=== PATIENT | female | born 1945 | race Two or more races ===

== ENCOUNTER → 2016-08-18 | Outpatient (CLI) | payer MEDICARE, OTHER ==
[~2016-08-18] MED LIST: ACET500T68 PO; ALEN70TA5 PO; CALC-67 PO; CHOL20003 PO; CLOB15CR TP; CRAN1TAB6 PO; ESOM40CA PO; GLUC1CAP48 PO; HYOS0.1261 SL; IBUP200C PO; LOSA100T6 PO; LOVA40TA2 PO; MAGN500C PO; MELO-156 PO; MULT-246 PO; NITR100C PO; NYST100054 PO; OMEG1CAP6 PO; PHEN-373 PO; POLY119P4 PO; PROP10TA PO
--- NOTE | 2016-08-18 10:26 | RAD ---
DATE: 08/18/16 2 EXAM: DIGITAL SCREEN BILAT W/CAD HISTORY: Routine screening COMPARISON: 07/12/15 This study was interpreted with the benefit of Computerized Aided Detection (CAD). TECHNIQUE: CC and MLO views of both breasts was obtained. FINDINGS: Breast Density: HETERO The breast parenchyma is heterogeneously dense, which could reduce sensitivity of mammography. Breast parenchyma level C.. Stable scattered benign calcifications are seen in both breasts. IMPRESSION: Benign findings BI-RADS CATEGORY: 2 BENIGN FINDING(S) RECOMMENDED FOLLOW-UP: 12M 12 MONTH FOLLOW-UP PQRS compliance statement: Patient information was entered into a reminder system with a target due date for the next mammogram. Mammography is a sensitive method for finding small breast cancers, but it does not detect them all and is not a substitute for careful clinical examination. A negative mammogram does not negate a clinically suspicious finding and should not result in delay in biopsying a clinically suspicious abnormality. "Our facility is accredited by the [employer] Mammography Program."
== END | disposition home or self-care (01) ==
LOC: MAMMO 08:28
PROVIDERS: ATTEND Family Medicine
DX: Z12.31 Encounter for screening mammogram for malignant neoplasm of breast (principal)
CPT/HCPCS: G0202; 77067

== ENCOUNTER → 2017-08-20 | Outpatient (CLI) | payer MEDICARE, OTHER | END | disposition home or self-care (01) | LOC: MAMMO 09:53 | DX: Z12.31 Encounter for screening mammogram for malignant neoplasm of breast (principal) | CPT/HCPCS: 77063; 77067 ==

== ENCOUNTER → 2018-06-16 | Outpatient (CLI) | payer MEDICARE, OTHER ==
[~2018-06-16] MED LIST changes: -ALEN70TA5 PO; +ALEN70TA6 PO; +CALC-31 PO; -CALC-67 PO; -CHOL20003 PO; +CHOL20009 PO; +LOSA100T14 PO; -LOSA100T6 PO; -MAGN500C PO; +MAGN500C10 PO; -MELO-156 PO; +MELO7.5T29 PO; -PHEN-373 PO; +PHEN-444 PO
--- NOTE | 2018-06-16 15:17 | KCIC ---
Thyroid sonography Clinical indications: Right thyroid nodule increasing in size FINDINGS: The longitudinal AP and transverse dimensions of the right lobe are 4.3 cm and 1.9 cm and 1.4 cm respectively. The right lobe is heterogeneous. Small hypoechoic nodules are seen measuring 3 mm or less in size. There is a small hyperechoic nodule measuring 4.4 mm in size within the lower pole. The longitudinal and AP and transverse dimensions of the left lobe are 3.5 cm and 1.0 cm and 1.0 cm respectively. Small hypoechoic nodules are seen measuring 3 mm or less in size. The isthmus measures 3.5 mm in thickness and is homogeneous. IMPRESSION: Small benign bilateral thyroid nodules. Electronically signed by: Livan Cheng MD (06/16/2018 3:14 PM) [place] [id number]
== END | disposition home or self-care (01) ==
LOC: KCIC US 10:52
PROVIDERS: ATTEND Family Medicine
DX: E04.2 Nontoxic multinodular goiter (principal)
CPT/HCPCS: 76536

== ENCOUNTER → 2018-06-29 | Outpatient (CLI) | payer MEDICARE, OTHER ==
--- NOTE | 2018-06-29 11:54 | CARD ---
MR#: [id number] Date of Study: 06/29/2018 Ordering Physician: LALO STEVEN, Referring Physician: Refugio NOBLE: Tanisha Contreras RDCS APPROVED REPORT INDICATION Chest Pain Reason : Dizziness PROCEDURE The patient underwent an Exercise Stress Test using the Artem Protocol. Blood pressure, heart rate, a nd EKG were monitored. An Echocardiogram was performed by preventative maintenance technician in four stages in quad fashion. At peak stress four se lected images were obtained and placed side by side with resting images for comparison. STRESS ECHO FINDINGS The resting Echocardiogram showed normal left ventricular systolic contractility with an estimated Ej ection Fraction of about 60 %. The Resting Echocardiogram showed normal augmentation of myocardial wall segments using a 16 segment model. The Stress Echocardiogram showed normal augmentation of myocardial wall segments using a 16 segment m gaby. The Stress Echocardiogram left ventricular systolic contractility has an estimated Ejection Fraction of about 65%. Test Type: Exercise Stress Nurse/Tech: Wendy Geller R.N. Test Indications: cp Cardiac History and Allergies: see ehr Medications: see ehr Medical History: see ehr Resting ECG: SR Resting Heart Rate: 66 bpm Resting Blood Pressure: 163/60mmHg Pretest Chest Pain: No chest pain Nurse/Tech Notes S1S2, lungs CTA Stress Symptoms fatigue POST EXERCISE Reason for Termination: Reached target heart rate Target HR: Yes Max HR: 136 bpm 93% of Maximum Predicted HR: 147 bpm Exercise duration: 6:31 min:sec, Stage Exercise capacity: 7METs Max Blood Pressure: 195/90mmHg Heart Rate response to exercise: wnl Chest Pain: No. Arrhythmia: No. ST Change: Yes. No significant EKg changes. INTERPRETATION Stress EKG Conclusion: No significant EKG changes to suggest ischemia. STRESS ECG Stress EKG shows no significant changes. Preliminary Notification Critical Value: No <Conclusion> Normal exercise capacity with 7 metastases achieved with a total exercise time of 6 and half minutes on a Artem protocol Normal baseline LV function. EF 55%. Normal wall motion. Normal augmentation with stress with ejection fraction greater than 60%. Low risk study Signed by : Lamberto Wade, Electronically Approved : 06/29/2018 11:52:46
== END | disposition home or self-care (01) ==
LOC: ECHO 09:53
PROVIDERS: ATTEND Family Medicine
DX: R07.89 Other chest pain (principal); R42 Dizziness and giddiness
CPT/HCPCS: 93017; 93350

== ENCOUNTER → 2018-12-21 | Outpatient (CLI) | payer MEDICARE ==
--- NOTE | 2018-12-23 19:02 | RAD ---
DATE: 12/21/2018 EXAM: MAMMO ZEENAT SCREENING BILATERAL HISTORY: Routine screening COMPARISON: 07/12/2015, 08/18/2016, 08/20/2017 mammographic exams This study was interpreted with the benefit of Computerized Aided Detection (CAD). Breast Density: HETERO The breast parenchyma is heterogenously dense, which could reduce sensitivity of mammography. Breast parenchyma level C. FINDINGS: Benign calcifications are present. No mass or distortion. IMPRESSION: Stable BI-RADS CATEGORY: 1 NEGATIVE RECOMMENDED FOLLOW-UP: 12M 12 MONTH FOLLOW-UP PQRS compliance statement: Patient information was entered into a reminder system with a target due date in one year for the next mammogram. Mammography is a sensitive method for finding small breast cancers, but it does not detect them all and is not a substitute for careful clinical examination. A negative mammogram does not negate a clinically suspicious finding and should not result in delay in biopsying a clinically suspicious abnormality. "Our facility is accredited by the [employer] Mammography Program."
== END | disposition home or self-care (01) ==
LOC: MAMMO 10:21
PROVIDERS: ATTEND Family Medicine
DX: Z12.31 Encounter for screening mammogram for malignant neoplasm of breast (principal); N64.89 Other specified disorders of breast
CPT/HCPCS: 77063; 77067

== ENCOUNTER → 2019-06-08 | Day surgery (SDC) | payer MEDICARE, MEDICAID ==
[~2019-06-08] MED LIST changes: +HYDROmorphone 2 MG/ML VIAL IV PRN; +IV RINGERS,LACTATED 1000ML 1,000 ML IV SCH; +LIDOCAINE 1% PF 2 ML VIAL. ID PRN; +MORPHINE SULFATE 2 MG/ML VIAL. IV PRN; +ONDANSETRON PF 4 MG/2 ML VIAL. IV PRN; +PROCHLORPERAZINE 10 MG/2 ML VIAL. IV PRN; +PROPOFOL 20 ML IV ONE; +fentaNYL PF VIAL 100 MCG/2 ML VIAL IV PRN
[2019-06-08 10:29] VITALS: BP 147/65
--- NOTE | 2019-06-09 11:07 | PATHOLOGY ---
[facility] Accession Number: [id number] . 01 Material submitted: . PART A: small bowel - SMALL BOWEL BX PART B: stomach - ANTRUM GASTRIC BODY BX PART C: stomach - POLYP IN BODY OF STOMACH BX PART D: esophagus - DISTAL ESOPHAGUS BX AT 33. Modifiers: distal PART E: esophagus - MID ESOPHAGUS BX. Modifiers: mid . 01 Clinical history: . Dysphagia; Rothman's . 02 Diagnosis: A. Small bowel biopsies: - No significant pathologic abnormalities. . B. Gastric biopsy, antrum and gastric body: - Chronic gastritis, mild, focally active. . C. Gastric biopsies, body of stomach polyp: - Hyperplastic polyp, showing focal surface erosion, edema, and mild acute and chronic inflammation. . D. Esophageal biopsies, distal esophagus at 33 cm: - Segments of hyperplastic squamous esophageal mucosa with focal contiguous gastric mucosa showing moderate to marked active chronic inflammation, consistent with reflux changes. . E. Esophageal biopsies, middle esophagus: - Segments of mildly hyperplastic squamous esophageal mucosa. (JPM:[facility] 06/09/2019) [facility] 06/09/2019 0923 Local . 02 Comment: Sections of the small bowel biopsy reveal segments of duodenal mucosa. Where best oriented, the mucosal villi show no sprue-like changes or significant inflammatory changes. . Sections of the gastric biopsy reveal gastric antral mucosa showing congestion and focally active mild chronic inflammation. A properly controlled immunoperoxidase for Helicobacter is negative for Helicobacter organisms. . Sections of the gastric body polyp biopsy reveal segments of gastric hyperplastic polyp showing congestion, focal edema, and focal superficial mucosal erosion and mild acute and chronic inflammation. There are no adenomatous changes or evidence of malignancy. . Sections of the distal esophageal biopsy reveal segments of tangentially oriented hyperplastic squamous esophageal mucosa, one of which has contiguous gastric mucosa showing moderate to marked active chronic inflammation. The findings are consistent with reflux esophagitis. There is no evidence of Rothman's change, dysplasia, or malignancy. . Sections of the middle esophageal biopsy reveal segments of tangentially oriented, mildly hyperplastic squamous esophageal mucosa. There is no evidence of Rothman's change, dysplasia, or malignancy. (JPM:[facility] 06/09/2019) . Special stain performed: Immunoperoxidase for Helicobacter on B1. . 02 Electronically signed: . Chepe Lagos MD, Pathologist NPI- [id number] . 01 Gross description: . A. The specimen is received in formalin, labeled "Jessica Sanzarribas, small bowel biopsy". Received are three segments of pale flores soft tissue ranging in size from 0.3 to 0.4 cm in maximum dimensions. The specimen is submitted entirely in cassette A1. . B. The specimen is received in formalin, labeled "Jessica Sanzarribas, antrum and gastric body biopsy". Received is a segment of pale flores soft tissue measuring 0.6 cm in maximum dimensions. The specimen is submitted entirely in cassette B1. Upon careful inspection and filtration, no additional tissue is found remaining within the container. . C. The specimen is received in formalin, labeled "Jessica Sanzarribas, polyp in body of stomach". Received are three segments of pale flores soft tissue ranging in size from 0.2 to 0.4 cm in maximum dimensions. The specimen is submitted entirely in cassette C1. . D. The specimen is received in formalin, labeled "Jessica Sanzarribas, distal esophagus at 33 cm". Received are two segments of pale flores soft tissue measuring 0.6 cm each in maximum dimensions. The specimen is submitted entirely in cassette D1. . E. The specimen is received in formalin, labeled "Jessica Sanzarribas, mid esophagus biopsy". Received are two segments of pale flores soft tissue ranging in size from 0.3 to 0.4 cm in maximum dimensions. The specimen is submitted entirely in cassette E1. (CAA; 06/08/2019) QAC/QAC 06/09/2019 0916 Local . 02 Pathologist provided ICD-10: K29.50, K31.7, K25.9, K20.8 . 02 CPT . 090928, 436286, 363916, 546324, [id number], [id number] Specimen Comment: A courtesy copy of this report has been sent to [phone], [phone] Specimen Comment: [id number] Specimen Comment: Report sent to / DR STEVEN Specimen Comment: A duplicate report has been generated due to demographic updates. Performed at: 01 [facility] [address] [place] [id number] MD Francis Lopez MD Phone: [phone] Performed at: 02 [facility] [address] [place], [place] [id number] MD Chepe Lagos MD Phone: [phone]
== END ==
LOC: ENDOS 09:19
PROVIDERS: ATTEND Internal Medicine Gastroenterology
DX: R13.10 Dysphagia, unspecified (principal); K29.50 Unspecified chronic gastritis without bleeding; K21.0 Gastro-esophageal reflux disease with esophagitis; K31.7 Polyp of stomach and duodenum; K22.2 Esophageal obstruction; K44.9 Diaphragmatic hernia without obstruction or gangrene; I10 Essential (primary) hypertension; E78.00 Pure hypercholesterolemia, unspecified; F15.10 Other stimulant abuse, uncomplicated; Z88.3 Allergy status to other anti-infective agents
CPT/HCPCS: 43239; 43450; 88305; 88342; J2704

== ENCOUNTER → 2019-11-21 | Outpatient (CLI) | payer MEDICAID, MEDICARE ==
[2019-06-08 10:29] VITALS: BP 147/65
[~2019-11-21] MED LIST changes: -HYDROmorphone 2 MG/ML VIAL IV PRN; -IV RINGERS,LACTATED 1000ML 1,000 ML IV SCH; -LIDOCAINE 1% PF 2 ML VIAL. ID PRN; -MORPHINE SULFATE 2 MG/ML VIAL. IV PRN; -ONDANSETRON PF 4 MG/2 ML VIAL. IV PRN; -PROCHLORPERAZINE 10 MG/2 ML VIAL. IV PRN; -PROPOFOL 20 ML IV ONE; -fentaNYL PF VIAL 100 MCG/2 ML VIAL IV PRN
[2019-11-21 12:25] LABS: C-REACTIVE PROTEIN 1.3 mg/L (0-3.3)
[2019-11-22 02:09] LABS: HEMOGLOBIN A1C 5.4 % (4.8-5.6)
[2019-11-22 22:09] LABS: ANA INTERP Negative (.)
[2019-11-23 15:14] LABS: ALBUM 3.6 g/dL (2.9-4.4); ALPHA 1 0.2 g/dL (0.0-0.4); ALPHA 2 0.7 g/dL (0.4-1.0); GAMMA 0.8 g/dL (0.4-1.8); PROTEIN TOTAL 6.3 g/dL (6.0-8.5); SPEP AG RATIO 1.3 (0.7-1.7)
== END | disposition home or self-care (01) ==
LOC: LAB 11:45
PROVIDERS: ATTEND Psychiatry & Neurology Neurology with Special Qualifications in Child Neurology
DX: G62.89 Other specified polyneuropathies (principal); R20.0 Anesthesia of skin; R73.9 Hyperglycemia, unspecified; R53.1 Weakness
CPT/HCPCS: 36415; 82607; 82746; 82947; 83036; 84165; 84443; 86038; 86140

== ENCOUNTER → 2019-11-22 | Outpatient (CLI) | payer MEDICARE, MEDICAID ==
[2019-06-08 10:29] VITALS: BP 147/65
--- NOTE | 2019-11-22 16:23 | KCIC ---
EXAM: Thyroid Ultrasound INDICATION: Reason: FU THYROID NODULE / Spl. Instructions: / History: ? TECHNIQUE: Real-time ultrasound of the thyroid was performed with permanent freeze-frame documentation. COMPARISON: Report of previous thyroid ultrasound exam of 06/16/2018 ? FINDINGS: THYROID: Thyroid gland is normal and homogeneous echogenicity. ? Right Lobe: 4.5 x 1.5 x 2.4 cm. There are 2 nodules in the right thyroid lobe. Nodule #1. Maximum size: 0.7 cm; Other 2 dimensions 0.5 x 0.5 cm. Location: Deep inferior pole. ACR TI-RADS risk category: TR3 (3 points): FNA if 2.5 cm, follow-up if 1.5-2.4 cm in 1, 3, and 5 years. Significant change in size (>= 20% in two dimensions and minimal increase of 2 mm): No. Change in features: No. Change in ACR TI-RADS risk category: No. Nodule #2. Maximum size: 0.4 cm; Other 2 dimensions 0.4 x 0.3 cm. Location: Posterior inferior medial. ACR TI-RADS risk category: TR3 (3 points): FNA if 2.5 cm, follow-up if 1.5-2.4 cm in 1, 3, and 5 years. Significant change in size (>= 20% in two dimensions and minimal increase of 2 mm): This is newly appreciated. Change in features: Yes. Change in ACR TI-RADS risk category: No. ? Left Lobe: 4.0 x 1.0 x 1.6 cm. ? Isthmus: 0.5 cm. ?? No thyroid nodule. ? OTHER: No evidence of adjacent cervical adenopathy. ? IMPRESSION: ? Likely benign inferior thyroid lobe nodules for which follow-up in one year is recommended, as described for TI-RADS 3 lesions. Electronically signed by: Rosita Jones MD (11/22/2019 4:20 PM) [id number]
== END | disposition home or self-care (01) ==
LOC: KCIC US 10:36
PROVIDERS: ATTEND Family Medicine
DX: E04.2 Nontoxic multinodular goiter (principal)
CPT/HCPCS: 76536

== ENCOUNTER → 2019-12-26 | Outpatient (CLI) | payer MEDICARE, MEDICAID ==
[2019-06-08 10:29] VITALS: BP 147/65
--- NOTE | 2019-12-27 17:46 | RAD ---
DATE: 12/26/2019 11:02 AM EXAM: MAMMO ZEENAT SCREENING BILATERAL HISTORY: Screening COMPARISON: 12/21/2018, 08/20/2017 Bilateral CC and MLO views of the breasts were performed. Bilateral breast tomosynthesis was performed in CC and MLO projections. This study was interpreted with the benefit of Computerized Aided Detection (CAD). FINDINGS: Breast Density: HETERO The breast parenchyma Is heterogeneously dense, which could reduce sensitivity of mammography. Breast parenchyma level C No suspicious masses, microcalcifications or architectural distortion is present to suggest malignancy in either breast. The visualized axillae are unremarkable. IMPRESSION: No mammographic evidence of malignancy. BI-RADS CATEGORY: 1 NEGATIVE RECOMMENDED FOLLOW-UP: 12M 12 MONTH FOLLOW-UP Annual screening mammography is recommended, unless clinically indicated sooner based on symptoms or change in physical exam. PQRS compliance statement: Patient information was entered into a reminder system with a target due date for the next mammogram. Mammography is a sensitive method for finding small breast cancers, but it does not detect them all and is not a substitute for careful clinical examination. A negative mammogram does not negate a clinically suspicious finding and should not result in delay in biopsying a clinically suspicious abnormality. "Our facility is accredited by the [employer] Mammography Program."
== END | disposition home or self-care (01) ==
LOC: MAMMO 10:47
PROVIDERS: ATTEND Family Medicine
DX: Z12.31 Encounter for screening mammogram for malignant neoplasm of breast (principal)
CPT/HCPCS: 77063; 77067

== ENCOUNTER → 2020-07-01 | Outpatient (CLI) | payer MEDICARE, MEDICAID ==
[2019-06-08 10:29] VITALS: BP 147/65
[~2020-07-01] MED LIST changes: -ALEN70TA6 PO; +ALEN70TA71 PO
--- NOTE | 2020-07-01 14:48 | KCIC ---
MR LUMBAR SPINE [id number] History: Reason: LUMBAGO / Spl. Instructions: / History: Right sided hip pain in recent weeks. NKI Technique: Multiplanar, multi sequential MR imaging was performed of the lumbar spine. Comparison: September 11, 2014 Findings: Normal vertebral body height and alignment. No fracture. Low-lying conus terminating at L3. L1-L2: Small disc bulge. Mild facet arthropathy. No canal or neuroforaminal narrowing. L2-L3: Small disc bulge. Mild facet arthropathy. No canal or neuroforaminal narrowing. L3-L4: Small disc bulge. Mild facet arthropathy. No canal or neuroforaminal narrowing. L4-L5: Broad-based disc bulge. Moderate facet arthropathy. No canal narrowing. No neuroforaminal jayesh rowing. L5-S1: Disc height loss. Disc bulge. Advanced right and moderate left facet arthropathy. No canal na rrowing. Severe right and moderate left neuroforaminal narrowing. Overall degenerative findings are progressed compared to 2015. Impression: 1. Multilevel lumbar spondylosis most prominent L5-S1, progressed compared to prior. 2. Increased L5-S1 severe right and moderate left neuroforaminal narrowing. 3. Low-lying conus, unchanged. Electronically signed by: Osiel Witt DO (07/01/2020 2:45 PM) [id number]
== END ==
LOC: KCIC MRI 10:50
PROVIDERS: ATTEND Physical Medicine & Rehabilitation
DX: M47.816 Spondylosis without myelopathy or radiculopathy, lumbar region (principal); M48.07 Spinal stenosis, lumbosacral region
CPT/HCPCS: 72148

== ENCOUNTER → 2021-01-23 | Outpatient (CLI) | payer MEDICARE, MEDICAID ==
[2019-06-08 10:29] VITALS: BP 147/65
--- NOTE | 2021-01-23 12:05 | RAD ---
Bilateral screening mammogram dated 11/23/2020. INDICATION: 75 years of age asymptomatic female patient presents for screening mammography. Screening TECHNIQUE: Full field craniocaudal and mediolateral oblique images of both breasts were obtained usi ng digital technique with tomosynthesis and also analyzed with computer-aided detection software. . COMPARISON: 12/26/2019, 12/21/2018 08/20/2017. BREAST COMPOSITION: Category C: The breast tissue is heterogeneously dense, which could obscure detec tion of small masses. FINDINGS: No suspicious mass or clustered microcalcification. There are scattered benign-appearing calculations , unchanged. No architectural distortion. The visualized axillae are unremarkable. IMPRESSION: No mammographic evidence of malignancy. RECOMMENDATION: Annual screening mammography is recommended, unless clinically indicated sooner based on symptoms or change in physical exam. BIRADS 1: NEGATIVE This study was interpreted with the benefit of Computerized Aided Detection (CAD). Recommend follow-up screening mammogram in one year. Patient information is entered into the reminder system with a target due date for the next screening mammogram. Mammography is the most sensitive method for finding small breast cancers, but it does not detect the m all and is not a substitute for careful clinical examination. A negative mammogram does not negate a clinically suspicious finding and should not result in delay in biopsying a clinically suspicious a bnormality. "Our facility is accredited by the [employer] Mammography Program." Electronically signed by: Ha Bailey MD (01/23/2021 12:03 PM) [id number]
== END ==
LOC: MAMMO 10:15
PROVIDERS: ATTEND Family Medicine
DX: Z12.31 Encounter for screening mammogram for malignant neoplasm of breast (principal)
CPT/HCPCS: 77063; 77067